=== PATIENT | female | born 1965 | race Caucasian/White ===

== ENCOUNTER 2017-09-15 11:35 | Emergency (ER) | payer OTHER, SELFPAY | END 2017-09-15 12:08 | disposition home or self-care (01) | PROVIDERS: Emergency Provider Nurse Practitioner Family; Family Provider Internal Medicine Adolescent Medicine; Visit Provider Nurse Practitioner Family | DX: J10.1 Influenza due to other identified influenza virus with other respiratory manifestations (principal) | CPT/HCPCS: 87804; 99201 ==

== ENCOUNTER → 2017-10-13 08:38 | Outpatient (CLI) | payer OTHER, SELFPAY ==
[2017-10-13 10:03] LABS: Alanine Aminotransferase 95 U/L (12-78); Albumin Level 4.2 gm/dL (3.4-5.0); Albumin/Globulin Ratio 1.4 (1.1-1.8); Alkaline Phosphatase 103 U/L (46-116); Aspartate Amino Transferase 58 U/L (15-37); Bilirubin,Total 0.4 mg/dL (0.2-1.0); Blood Urea Nitrogen 11 mg/dL (7-18); Calcium 8.8 mg/dL (8.5-10.1); Carbon Dioxide 27 mmol/L (21.0-32.0); Chloride 104 mmol/L (98-107); Chol/HDL Ratio 2.3 (1-3.5); Cholesterol 169 mg/dL (140-200); Creatinine,Serum 0.57 mg/dL (0.55-1.02); Estimated Glomerular Filt Rate 113 ml/min (>60); GFR (African American) 136 ML/MIN (>60); Globulin 3.1 gm/dl (1.3-3.2); Glucose 132 mg/dL (74-106); HDL Cholesterol 75 mg/dL (29-89); LDL Cholesterol 80 mg/dL (0-130); Sodium 141 mmol/L (136-145); Total Protein,Serum 7.3 gm/dL (6.4-8.2); Triglycerides 71 mg/dL (30-200); VLDL Cholesterol 14 mg/dL (0-40)
[2017-10-13 14:04] LABS: Hemoglobin A1C 6.6 % (0.0-7.0)
[2017-10-15 15:08] LABS: Hep A Ab, IgM Negative (Negative); Hepatitis B Core Antibody IgM Negative (Negative); Hepatitis B Surface Antigen Negative (Negative)
[2017-10-15 18:29] LABS: Hepatitis C Antibody <0.1 s/co ratio (0.0-0.9)
== END ==
PROVIDERS: PCP Internal Medicine Adolescent Medicine; Visit Provider Nurse Practitioner Family
DX: Z00.00 Encounter for general adult medical examination without abnormal findings (principal)
CPT/HCPCS: 36415; 80053; 80061; 80074; 83036

== ENCOUNTER → 2017-10-17 09:50 | Outpatient (CLI) | payer OTHER, SELFPAY ==
--- NOTE | 2017-10-17 09:54 | XR_ITS ---
EXAM: XR lumbar spine min 4V HISTORY: ITS.REASON: ACUTE BILAT LOW BACK PAIN ORDERING PHYSICIAN: Anahy High PATIENT AGE: 51 years COMPARISON: None FINDINGS: No acute fracture or dislocation is evident. There is mild anterolisthesis of L4 on L5 of 3 mm. Degenerative disc disease is present at L5-S1. There are facet hypertrophic/arthritic changes at L4-L5 and L5-S1. No lytic or blastic change. IMPRESSION: Lumbar spondylosis with degenerative disc disease at L5-S1 and facet arthritic changes at L4-L5 and L5-S1
--- NOTE | 2017-10-17 09:54 | XR_ITS ---
XR sacroiliac joint BI min 3V CLINICAL INDICATION: ITS.REASON: ACUTE BILAT LOW BACK PAIN ORDERING PHYSICIAN: Anahy High PATIENT AGE: 51 years COMPARISON: None FINDINGS: The SI joints have an unremarkable appearance. No fracture, effusion, or sclerosis. IMPRESSION: Negative SI joints
== END ==
PROVIDERS: PCP Internal Medicine Adolescent Medicine; Visit Provider Nurse Practitioner Family
DX: M54.5 Low back pain (principal)
CPT/HCPCS: 72110; 72202

== ENCOUNTER → 2017-10-20 07:45 | Outpatient (CLI) | payer OTHER, SELFPAY ==
--- NOTE | 2017-10-20 07:47 | US_ITS ---
US abdomen limited Ordering Physician: Anahy High Patient Age: 51 years: Female HISTORY: ITS.REASON: ELEVATED LIVER ENZYMES Elevated liver enzymes. TECHNIQUE: Ultrasound right upper quadrantmw COMPARISON :No FINDINGS ----- Pancreas. Unremarkable. Liver. Diffuse increased echogenicity suggesting diffuse infiltrates change No focal lesion. No intrahepatic biliary duct dilatation Common duct normal diameter no dilatation. 3 mm at hilum of liver Gallbladder.: No discrete shadowing stones However there is a 4.5 mm echogenic focus which appears to be a small polyp along the posterior wall. Borderline thickened gallbladder wall measuring 3.4 mm thickness . Right kidney appears normal. With no hydronephrosis or mass 10.4 cm in length x 5.3 cm. IMPRESSION: Fatty liver, diffusehepatic steatosis Gallbladder. No discrete shadowing stones. Minimal debris, sludge . What appears to be most likely left 4.5 mm polyp posterior wall gallbladder
== END ==
PROVIDERS: PCP Internal Medicine Adolescent Medicine; Visit Provider Nurse Practitioner Family
DX: R74.8 Abnormal levels of other serum enzymes (principal)
CPT/HCPCS: 76705

== ENCOUNTER → 2018-05-24 10:31 | Outpatient (CLI) | payer OTHER, SELFPAY ==
[2018-05-24 11:59] LABS: Alanine Aminotransferase 24 U/L (12-78); Albumin Level 3.7 gm/dL (3.4-5.0); Albumin/Globulin Ratio 1.1 (1.1-1.8); Alkaline Phosphatase 93 U/L (46-116); Anion Gap 11.5 mEq/L (5-15); Aspartate Amino Transferase 14 U/L (15-37); Bilirubin,Total 0.3 mg/dL (0.2-1.0); Blood Urea Nitrogen 7 mg/dL (7-18); Carbon Dioxide 29 mmol/L (21.0-32.0); Chloride 104 mmol/L (98-107); Chol/HDL Ratio 3.8 (1-3.5); Cholesterol 232 mg/dL (140-200); Creatinine,Serum 0.75 mg/dL (0.55-1.02); Estimated Glomerular Filt Rate 82 ml/min (>60); GFR (African American) 99 ML/MIN (>60); Globulin 3.3 gm/dl (1.3-3.2); Glucose 141 mg/dL (74-106); HDL Cholesterol 61 mg/dL (29-89); LDL Cholesterol 139 mg/dL (0-130); Potassium 4.5 mmoL/L (3.5-5.1); Sodium 140 mmol/L (136-145); Triglycerides 158 mg/dL (30-200); VLDL Cholesterol 32 mg/dL (0-40)
[2018-05-24 12:12] LABS: Hemoglobin A1C 6.2 % (0.0-7.0)
== END ==
PROVIDERS: PCP Internal Medicine Adolescent Medicine; Visit Provider Nurse Practitioner Family
DX: Z00.00 Encounter for general adult medical examination without abnormal findings (principal); E78.5 Hyperlipidemia, unspecified; E11.9 Type 2 diabetes mellitus without complications
CPT/HCPCS: 36415; 80053; 80061; 83036

== ENCOUNTER → 2018-06-04 08:13 | Outpatient (POV) | payer OTHER, SELFPAY | PROVIDERS: Visit Provider Physician Assistant | DX: Z00.00 Encounter for general adult medical examination without abnormal findings (principal) ==

== ENCOUNTER → 2018-11-16 07:49 | Outpatient (CLI) | payer OTHER, SELFPAY ==
[2018-11-16 10:03] LABS: Alanine Aminotransferase 69 U/L (12-78); Albumin Level 4.1 gm/dL (3.4-5.0); Albumin/Globulin Ratio 1.2 (1.1-1.8); Alkaline Phosphatase 96 U/L (46-116); Anion Gap 16.3 mEq/L (5-15); Aspartate Amino Transferase 36 U/L (15-37); Bilirubin,Total 0.5 mg/dL (0.2-1.0); Blood Urea Nitrogen 16 mg/dL (7-18); Calcium 9.4 mg/dL (8.5-10.1); Carbon Dioxide 25 mmol/L (21.0-32.0); Chloride 101 mmol/L (98-107); Chol/HDL Ratio 2.9 (1-3.5); Cholesterol 214 mg/dL (140-200); Estimated Glomerular Filt Rate 89 ml/min (>60); GFR (African American) 107 ML/MIN (>60); Globulin 3.3 gm/dl (1.3-3.2); Glucose 116 mg/dL (74-106); HDL Cholesterol 73 mg/dL (29-89); LDL Cholesterol 120 mg/dL (0-130); Potassium 4.3 mmoL/L (3.5-5.1); Sodium 138 mmol/L (136-145); Total Protein,Serum 7.4 gm/dL (6.4-8.2); Triglycerides 104 mg/dL (30-200); VLDL Cholesterol 21 mg/dL (0-40)
[2018-11-16 10:10] LABS: C-Reactive Protein < 0.2 mg/L (0.0-0.9)
[2018-11-16 12:21] LABS: Hemoglobin A1C 6.5 % (0.0-7.0)
[2018-11-16 15:36] LABS: Erythrocyte Sedimentation Rate 12 mm/hr (0-20)
[2018-11-19 16:45] LABS: Antinuclear Antibodies, IFA Negative (.)
== END ==
PROVIDERS: Visit Provider Nurse Practitioner Family
DX: Z00.00 Encounter for general adult medical examination without abnormal findings (principal); E78.5 Hyperlipidemia, unspecified; E11.9 Type 2 diabetes mellitus without complications; M12.9 Arthropathy, unspecified
CPT/HCPCS: 36415; 80053; 80061; 83036; 85651; 86038; 86140

== ENCOUNTER → 2018-11-21 07:58 | Outpatient (CLI) | payer OTHER, SELFPAY ==
--- NOTE | 2018-11-21 08:00 | US_ITS ---
US liver HISTORY: ITS.REASON: NONALCOHOLIC STEATOHEPATITIS ORDERING PHYSICIAN: Anahy High PATIENT AGE: 52 years COMPARISON: None FINDINGS: PANCREAS:Unremarkable. No obvious mass or abnormal fluid collection. No ductal dilatation LIVER:No focal liver lesions demonstrated. Homogeneous echogenicity. No intrahepatic biliary ductal dilatation evident there is mild diffuse increased echogenicity of the liver consistent with hepatic steatosis. There is appropriate direction of blood flow within a nondilated portal vein RIGHT KIDNEY:Unremarkable. Normal size and echogenicity. No hydronephrosis GALLBLADDER:No gallstones, gallbladder wall thickening, pericholecystic fluid, or biliary dilatation. There are at least 2 and possibly 3 small gallbladder polyps. Common bile duct is normal at 4 mm. IMPRESSION: Fatty liver. Gallbladder polyps. No stones or other significant anomalies
== END ==
PROVIDERS: PCP Nurse Practitioner Family; Visit Provider Nurse Practitioner Family
DX: K75.81 Nonalcoholic steatohepatitis (NASH) (principal)
CPT/HCPCS: 76705

== ENCOUNTER → 2018-11-29 12:22 | Outpatient (CLI) | payer OTHER, SELFPAY ==
--- NOTE | 2018-11-29 12:30 | XR_ITS ---
XR hand RT min 3V HISTORY: ITS.REASON: RT THUMB PAIN ORDERING PHYSICIAN: Anahy High PATIENT AGE: 52 years COMPARISON: None FINDINGS: No fracture or dislocation. No lytic or blastic change. There is normal mineralization.. The joint spaces are well-preserved. No significant degenerative/arthritic changes. No erosive changes evident.. IMPRESSION: Negative, no acute finding
== END ==
PROVIDERS: PCP Internal Medicine Adolescent Medicine; Visit Provider Nurse Practitioner Family
DX: M79.644 Pain in right finger(s) (principal)
CPT/HCPCS: 73130

== ENCOUNTER 2018-12-26 15:13 | Outpatient (RCR) | payer OTHER, SELFPAY | END 2018-12-26 15:30 | disposition home or self-care (01) | LOC: OT 15:13 | PROVIDERS: Visit Provider Orthopaedic Surgery | DX: M65.311 Trigger thumb, right thumb (principal) | CPT/HCPCS: 97763 ==

== ENCOUNTER → 2019-06-12 14:15 | Outpatient (CLI) | payer OTHER, SELFPAY ==
--- NOTE | 2019-06-12 14:18 | XR_ITS ---
PROCEDURE: XR MULTIPLE SPINE 6+V CLINICAL INDICATION: CERVICAL AND THORACIC PAIN COMPARISON: No exams were available for comparison FINDINGS: Cervical spine: Five views: Straightening of cervical lordosis. Degenerative disc disease C5-C6 and C6-C7. facet arthritic changes see 4 to C7. Mild foraminal narrowing on the right C4-5 and C5-6 and C6-C7 and mild left-sided foraminal narrowing at C5-C6 and C6-C7. No fracture or dislocation. Thoracic spine three views: Mild midthoracic scoliosis convex right. Mild multilevel degenerative disc disease. No acute fracture or dislocation. IMPRESSION: Degenerative changes, cervical and thoracic spondylosis. Please see above for detail. No acute fracture Dictated by: Mac Murry MD 06/13/2019 05:10 Electronically signed by Mac Murry MD in [place] 06/13/2019 05:10
== END ==
PROVIDERS: PCP Internal Medicine Adolescent Medicine; Visit Provider Nurse Practitioner Family
DX: M54.2 Cervicalgia (principal); M54.6 Pain in thoracic spine
CPT/HCPCS: 72084

== ENCOUNTER → 2019-07-01 14:59 | Outpatient (CLI) | payer OTHER, SELFPAY ==
--- NOTE | 2019-07-01 15:01 | MR_ITS ---
PROCEDURE: MR CERVICAL SPINE WO CON CLINICAL INDICATION: CERVICAL PAIN Left-sided neck pain. Left arm numbness COMPARISON: XR MULTIPLE SPINE 6+V from 06/12/2019 TECHNIQUE: Standard multiplanar multiecho sequences are performed without contrast. 3-D MIP and myelographic images are also rendered and reviewed FINDINGS: There is straightening/reversal of the normal lordosis which may be due to patient positioning or muscle spasm. Cranial cervical junction has an unremarkable appearance. There is generalized motion artifact which does decrease the sensitivity of the exam. C2-C3: Unremarkable. C3-C4: Unremarkable. C4-C5: Unremarkable. C5-C6: Degenerative disc disease. There is a small central disc protrusion. There narrowing of the canal at this level at 9 mm. There also appears to be a small left paracentral/foraminal disc protrusion/disc osteophyte complex causing left lateral recess and foraminal narrowing. Motion artifact does obscure fine detail in this area. C6-C7: Degenerate disc disease with mild bulging disc. Type 2 endplate changes are present at C6-C7 C7-T1 unremarkable. On the sagittal images there degenerative disc disease noted at T2-T3 and T3-T4 with bulging disc at these levels.. IMPRESSION: 1. Motion artifact obscures fine detail. 2. Degenerative disc disease at C5-C6 with a small central disc protrusion. There narrowing of the canal at this level at 9 mm. There also appears to be a small left paracentral/foraminal disc protrusion/disc osteophyte complex causing left lateral recess and foraminal narrowing 3. Degenerative disc disease C6-C7, T2-T3 and T3-T4 with bulging disc at these levels Dictated by: Mac Murry MD 07/02/2019 05:07 Electronically signed by Mac Murry MD in [place] 07/02/2019 05:07
== END ==
PROVIDERS: PCP Internal Medicine Adolescent Medicine; Visit Provider Nurse Practitioner Family
DX: M54.2 Cervicalgia (principal)
CPT/HCPCS: 72141; 76376

== ENCOUNTER → 2019-08-05 08:40 | Outpatient (POV) | payer OTHER, SELFPAY ==
[2019-08-05 08:57] VITALS: BP 144/69; PULSE 77; RESP 18; O2SAT 99; BMI 27.3
--- NOTE | 2019-08-05 14:58 | HMH.PAINSOAP ---
[facility] Pain Management SOAP Note Subjective:: Patient is a very pleasant 53-year-old white female who presents today for follow-up after cervical epidural steroid injection. Patient did not get much relief from that she rates her pain a 3 out of 10 today. Patient does have a appointment Dr. Franz the neurosurgeon tomorrow. I encouraged her to keep this appointment. At this time we will defer to him until he gives recommendations in regards to her treatment. ROS General: no recent weight change, no fever, no sleep disturbances Respiratory: no cough, no shortness of air, no recurring pulmonary infections Cardiovascular/Peripheral Vascular: No chest pain, No palpitations, no edema, no shortness of breath. Gastrointestinal: no new onset incontinence, normal bowel movements reported Genitourinary: no new onset incontinence Musculoskeletal: Neck pain, arm pain Psychiatric: normal mood/ affect Neurological: [denies new onset weakness in extremities], [denies new onset balance issues] Objective:: Physical Exam General: Alert and oriented x3, no acute distress, pleasant and cooperative, [on room air] Lungs: Resps E/U, Symmetrical chest expansion, Eyes: PERRL Musculoskeletal: Flexion and extension of cervical spine somewhat guarded secondary to pain, deep tendon reflexes normal, strength in upper and lower extremities [5/5], normal gait noted Neurological: speech clear, staffing account manager equal, no gross sensory deficits Assessment:: 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 Franz tomorrow. We will defer to him for his opinion in regards to treatment. Patient's been instructed to call the office after her appointment for follow-up if necessary. T Dr. Gil has reviewed this note and agrees with this plan of care. This note was dictated using voice recognition software and may contain errors or omissions [facility] History Medical History: Reports:: Depression, Diabetes Mellitus Type 2 Denies:: Asthma, Cancer, Diabetes Mellitus Type 1, Hypertension, MRSA, Seizures *Have you ever received a pneumonia vaccine?: Yes *Have you received a flu vaccine this season?: Yes Other Surgeries: Yes: Skin Cancer Excision, Tubal Ligation Amputation: No Fractures: No - *Social History Smoking Status: Never smoker Alcohol Intake: never Alcohol Intake Frequency:: holidays/special occasions only Substance Use Type: denies use *Occupational Status:: other Housing: apartment Household Members: spouse *Travel in the last 8 weeks: None - Psychiatric History Pschychiatric History:: Reports:: Depression Family Hx:: Cancer, Diabetes, Hyperlipidemia
== END ==
PROVIDERS: PCP Internal Medicine Adolescent Medicine; Visit Provider Clinical Nurse Specialist Family Health
DX: M50.10 Cervical disc disorder with radiculopathy, unspecified cervical region (principal)
CPT/HCPCS: 99212

== ENCOUNTER → 2019-09-05 13:53 | Outpatient (POV) | payer OTHER, SELFPAY | PROVIDERS: Visit Provider Neurological Surgery | DX: Z00.00 Encounter for general adult medical examination without abnormal findings (principal) ==

== ENCOUNTER → 2019-10-10 09:43 | Outpatient (CLI) | payer OTHER, SELFPAY ==
--- NOTE | 2019-10-10 09:46 | XR_ITS ---
PROCEDURE: XR HAND RT MIN 3V CLINICAL INDICATION: hand pain COMPARISON: [id number] XR hand RT min 3V from 11/29/2018 FINDINGS: No fracture or dislocation. No lytic or blastic change. There is normal mineralization. The joint spaces are well-preserved. No significant degenerative/arthritic changes. No erosive changes evident. Other findings:None. IMPRESSION: No acute findings. Dictated by: Cristóbal Wilson 10/10/2019 10:20 Electronically signed by Cristóbal Wilson in [place] 10/10/2019 10:20
== END ==
PROVIDERS: PCP Internal Medicine Adolescent Medicine; Visit Provider Orthopaedic Surgery
DX: M65.311 Trigger thumb, right thumb (principal)
CPT/HCPCS: 73130

== ENCOUNTER → 2020-03-10 16:53 | Outpatient (CLI) | payer OTHER, SELFPAY ==
--- NOTE | 2020-03-10 16:53 | MM_ITS ---
PROCEDURE: MM DIG SCREENING MAMM BI W/CAD Digital Breast Tomosynthesis Included CLINICAL INDICATION: screening xmg Cancer patient's maternal great aunt diagnosed after menopause. COMPARISON: DMSB DIG MAMM-SCREEN SOHAIL from 08/20/2015 DMSB DIG MAMM-SCREEN SOHAIL from 08/24/2016 DMSB DIG MAMM-SCREEN SOHAIL W/CAD from 08/29/2017 TECHNIQUE: Standard CC and MLO images and 3D Tomosynthesis was obtained. R2 CAD reviewed. FINDINGS: Scattered fibroglandular densities are seen throughout both breast and the findings of bilateral and symmetrical. There is no suspicious lesion and no suspicious microcalcifications. IMPRESSION: Fibrofatty parenchyma with no suspicious lesions seen BI-RAD Category: 1 Negative FOLLOW-UP: 1YR 1 Year Follow-up (A letter has been sent to the patient regarding results of the study.) Dictated by: Dr. Derek Warren MD 03/13/2020 10:[address] Derek Warren MD in [place] 03/13/2020 10:36
== END ==
PROVIDERS: PCP Internal Medicine Adolescent Medicine; Visit Provider Nurse Practitioner Obstetrics & Gynecology
DX: Z12.31 Encounter for screening mammogram for malignant neoplasm of breast (principal)
CPT/HCPCS: 77063; 77067

== ENCOUNTER → 2020-03-17 12:39 | Outpatient (CLI) | payer OTHER, SELFPAY ==
--- NOTE | 2020-03-17 13:15 | XR_ITS ---
PROCEDURE: XR HAND RT MIN 3V CLINICAL INDICATION: PAIN IN RT FINGERS COMPARISON: [id number] XR hand RT min 3V from 11/29/2018 XR HAND RT MIN 3V from 10/10/2019 FINDINGS: No fracture or dislocation. No lytic or blastic change. There is normal mineralization. The joint spaces are well-preserved. No significant degenerative/arthritic changes. No erosive changes evident. Other findings:None. IMPRESSION: No acute findings. Dictated by: Mac Murry MD 03/17/2020 14:52 Electronically signed by Mac Murry MD in [place] 03/17/2020 14:52
== END ==
PROVIDERS: PCP Nurse Practitioner Family; Visit Provider Nurse Practitioner Family
DX: M79.644 Pain in right finger(s) (principal); G89.29 Other chronic pain; L40.9 Psoriasis, unspecified
CPT/HCPCS: 73130

== ENCOUNTER → 2020-04-03 07:56 | Outpatient (CLI) | payer OTHER, SELFPAY ==
[2020-04-03 09:27] LABS: Basophils % 0.4 % (0.1-2.0); Eosinophils # 0.3 K/mm3 (0.0-0.4); Eosinophils % 3.8 % (0.1-12.0); Hemoglobin 13.8 g/dL (12.2-16.2); Mean Corpuscular HGB Conc 32.9 g/dL (31.8-35.4); Mean Corpuscular Hemoglobin 31.5 pg (27.0-31.2); Mean Corpuscular Volume 95.7 fl (81-99); Mean Platelet Volume 7.6 fl (7.4-10.4); Monocytes # 0.3 K/mm3 (0.1-1.0); Monocytes % 4.7 % (1.7-9.3); Neutrophils # 4.5 K/mm3 (1.8-7.8); Neutrophils % 63.1 % (37.0-80.0); Platelet Count 244 K/mm3 (142-424); Red Blood Count 4.39 M/mm3 (4.20-5.40); Red Cell Distribution Width 13.4 % (11.5-17.5); White Blood Count 7.1 K/mm3 (4.8-10.8)
[2020-04-03 09:55] LABS: Erythrocyte Sedimentation Rate 17 mm/hr (0-30)
[2020-04-03 10:16] LABS: Alanine Aminotransferase 34 U/L (12-78); Albumin Level 4.8 g/dl (3.5-5.0); Albumin/Globulin Ratio 1.7 (1.1-1.8); Alkaline Phosphatase 94 U/L (38-126); Anion Gap 13.3 mEq/L (5-15); Aspartate Amino Transferase 37 U/L (14-36); Bilirubin,Total 0.5 mg/dl (0.2-1.3); Blood Urea Nitrogen 18 mg/dl (7-17); Calcium 10.1 mg/dl (8.4-10.2); Carbon Dioxide 31 mmol/L (22.0-30.0); Chloride 100 mmol/L (98-107); Chol/HDL Ratio 2.2 (1-3.5); Cholesterol 194 mg/dl (140-200); Estimated Glomerular Filt Rate 75 ml/min (>60); GFR (African American) 91 ML/MIN (>60); Globulin 2.8 g/dL (1.3-3.2); Glucose 158 mg/dl (74-100); HDL Cholesterol 90 mg/dl (40-60); Potassium 4.3 mmoL/L (3.5-5.1); Sodium 140 mmol/L (136-145); Total Protein,Serum 7.6 g/dl (6.3-8.2); Triglycerides 121 mg/dl (30-150); VLDL Cholesterol 24 mg/dL (0-40)
[2020-04-03 10:27] LABS: C-Reactive Protein 1.3 mg/L (0-4); Direct LDL Cholesterol 84.96 mg/dL (100-129)
[2020-04-03 11:22] LABS: Microalbumin/Creatinine Ratio 172.8
[2020-04-03 11:23] LABS: Creatinine,Urine Random 69 mg/dL (Not Estab.)
== END ==
PROVIDERS: Visit Provider Nurse Practitioner Family
DX: E11.9 Type 2 diabetes mellitus without complications (principal); E78.5 Hyperlipidemia, unspecified; M79.644 Pain in right finger(s); L40.9 Psoriasis, unspecified; Z79.84 Long term (current) use of oral hypoglycemic drugs
CPT/HCPCS: 36415; 80053; 80061; 82043; 82570; 83036; 85025; 85651; 86140

== ENCOUNTER → 2020-04-21 07:56 | Outpatient (POV) | payer OTHER, SELFPAY | PROVIDERS: Visit Provider Dermatology | DX: Z00.00 Encounter for general adult medical examination without abnormal findings (principal) ==

== ENCOUNTER → 2020-06-22 13:13 | Outpatient (CLI) | payer OTHER, SELFPAY ==
--- NOTE | 2020-06-22 13:17 | XR_ITS ---
PROCEDURE: XR KNEE RT 3V CLINICAL INDICATION: RT KNEE PAIN,RT KNEE SWELLING COMPARISON: No exams were available for comparison FINDINGS: No fracture or dislocation. No lytic or blastic change. There is normal mineralization. There are minimal osteoarthritic changes of the medial compartment and patellofemoral joint Other findings:None. IMPRESSION: Mild osteoarthritis otherwise negative Dictated by: Mac Murry MD 06/22/2020 14:33 Mac Murry MD in [place] 06/22/2020 14:33
[2020-06-22 14:00] LABS: Basophils % 0.4 % (0.1-2.0); Eosinophils # 0.2 K/mm3 (0.0-0.4); Eosinophils % 2.1 % (0.1-12.0); Hematocrit 42.3 % (37.0-47.0); Hemoglobin 14.5 g/dL (12.2-16.2); Lymphocytes % 24.9 % (10-50); Mean Corpuscular HGB Conc 34.4 g/dL (31.8-35.4); Mean Corpuscular Volume 93.2 fl (81-99); Mean Platelet Volume 7.9 fl (7.4-10.4); Monocytes # 0.5 K/mm3 (0.1-1.0); Monocytes % 6.2 % (1.7-9.3); Neutrophils # 5.4 K/mm3 (1.8-7.8); Neutrophils % 66.3 % (37.0-80.0); Platelet Count 259 K/mm3 (142-424); Red Blood Count 4.54 M/mm3 (4.20-5.40); Red Cell Distribution Width 12.5 % (11.5-17.5); White Blood Count 8.1 K/mm3 (4.8-10.8)
== END ==
PROVIDERS: PCP Internal Medicine Adolescent Medicine; Visit Provider Nurse Practitioner Family
DX: M25.561 Pain in right knee (principal); M25.461 Effusion, right knee
CPT/HCPCS: 36415; 73562; 84550; 85025

== ENCOUNTER → 2020-06-23 07:45 | Outpatient (CLI) | payer OTHER, SELFPAY ==
--- NOTE | 2020-06-23 07:48 | MR_ITS ---
PROCEDURE: MR KNEE RT WO CON CLINICAL INDICATION: RIGHT MEDIAL KNEE PAIN, SWELLING RIGHT KNEE MEDIAL SIDED KNEE PAIN [id number]. PAINFUL TO BEAR WEIGHT. NO INJURY. PAIN WHEN BENDING AND EXTENDING KNEE. WORSE WHEN BENDING. PRIOR X-RAY 06-22-20 COMPARISON: CR XR KNEE RT 3V from 06/22/2020 TECHNIQUE: Routine multiplanar multi echo sequences are performed without gadolinium enhancement. FINDINGS: Commence appear intact. The collateral ligaments, patellar tendon, and quadriceps tendon appear intact. No definite meniscal tear there is a lobular area of isointense signal along the medial aspect the proximal tibia. This is contiguous with the semimembranosus tendon.. The medial collateral ligament and lateral collateral ligament appears intact. There is a moderate-sized loculated Quick's cyst measuring 7 cm cephalad caudad and 2.5 cm AP. Generalized knee joint effusion also noted with suprapatellar effusion. No definite meniscal tear. There is mild enlargement of the medial meniscus posterior horn with slight increase in T2 signal but no definite meniscal tear. This is at the area of the enlarged portion of the semimembranosus tendon. No bone contusions apparent. IMPRESSION: 1. No definite meniscal tear. No cruciate ligament tear. 2. Enlarged semimembranosus tendon at its insertion upon the proximal tibia with some increased T2 signal at this area suggesting strain or partial tear. A complete tear with tendon retraction is not present. 3. Knee joint effusion with Quick's cyst. Dictated by: Mac Murry MD 06/25/2020 10:22 Mac Murry MD in [place] 06/25/2020 10:22
== END ==
PROVIDERS: PCP Internal Medicine Adolescent Medicine; Visit Provider Nurse Practitioner Family
DX: M25.561 Pain in right knee (principal); M25.461 Effusion, right knee; M25.361 Other instability, right knee
CPT/HCPCS: 73721

== ENCOUNTER → 2020-08-31 09:30 | Outpatient (CLI) | payer SELFPAY | DX: Z94.0 Kidney transplant status (principal) | CPT/HCPCS: 36415 ==

== ENCOUNTER → 2020-10-12 11:37 | Outpatient (CLI) | payer OTHER, SELFPAY ==
--- NOTE | 2020-10-12 11:42 | XR_ITS ---
PROCEDURE: XR KNEE RT 4V CLINICAL INDICATION: right knee pain COMPARISON: CR XR KNEE RT 3V from 06/22/2020 FINDINGS: No fracture or dislocation. No lytic or blastic change. There is normal mineralization. Minimal osteoarthritic changes are present at the medial compartment. There is suspected small suprapatellar effusion. There is minimal lateral tibial subluxation. Other findings:None. IMPRESSION: Mild osteoarthritic change medial compartment with possible small knee joint effusion overall not significantly changed Dictated by: Mac Murry MD 10/12/2020 12:26 Mac Murry MD in [place] 10/12/2020 12:26
== END ==
PROVIDERS: PCP Internal Medicine Adolescent Medicine; Visit Provider Orthopaedic Surgery
DX: M25.561 Pain in right knee (principal)
CPT/HCPCS: 73564

== ENCOUNTER → 2020-10-21 08:05 | Outpatient (CLI) | payer OTHER, SELFPAY ==
--- NOTE | 2020-10-21 08:12 | XR_ITS ---
PROCEDURE: XR HIP RT 2-3V W/PELVIS CLINICAL INDICATION: right hip pain COMPARISON: No exams were available for comparison FINDINGS: No fracture or dislocation is evident. No significant degenerative change. No lytic or blastic change. Unremarkable soft tissues. IMPRESSION: No acute findings. Dictated by: Mac Murry MD 10/21/2020 15:57 Mac Murry MD in [place] 10/21/2020 15:57
== END ==
PROVIDERS: PCP Internal Medicine Adolescent Medicine; Visit Provider Orthopaedic Surgery
DX: M25.551 Pain in right hip (principal)
CPT/HCPCS: 73502

== ENCOUNTER → 2021-01-29 12:48 | Outpatient (CLI) | payer OTHER, SELFPAY | PROVIDERS: Visit Provider Internal Medicine Gastroenterology | DX: Z01.812 Encounter for preprocedural laboratory examination (principal); Z20.822 Contact with and (suspected) exposure to COVID-19; Z12.11 Encounter for screening for malignant neoplasm of colon | CPT/HCPCS: U0003 ==

== ENCOUNTER 2021-02-01 08:50 | Day surgery (SDC) | payer OTHER, SELFPAY ==
[2021-01-27 12:57] VITALS: BMI 26.4
[2021-02-01] VITALS (7 sets, daily range): BP systolic 97–122; BP diastolic 68–79; PULSE 71–79; RESP 18; TEMP 36.3–36.4; O2SAT 93–98
[2021-02-01 09:21] LABS: POC Glucose,Bedside 119 (70-110)
--- NOTE | 2021-02-01 10:04 | HMH.ANESCL ---
[facility] Anesthesia Checklist - Patient Identification Patient Identification: Arm Band - Structural Data Admitted From: Home Planned Operative Procedure/s: colonoscopy Consent for Planned Operative Procedure(s) Verified: Yes Verified Documents: Surgical Consent, History and Physical - NPO Status Verified Time NPO: 00:00 - Additional verifications Anesthesia Reactions: No - Airway Assessment C-Spine Mobility Assessed: Yes (mp2) TMJ Mobility Assessed: Yes Dentition: Good Dentition - Neurological Assessment Level of Consciousness: Awake, Alert - Anesthesia Plan Anesthesia Risk discussed: Yes Anesthesia Plan: Verified ASA Class: II Anesthesia Type: MAC [facility] History I have reviewed the patient's past medical history: Yes Medical History: Reports:: Cancer (melanoma), Depression, Diabetes Mellitus Type 2 Denies:: Asthma, Diabetes Mellitus Type 1, Hypertension, Internal Pacemaker, MRSA, Seizures *Have you ever received a pneumonia vaccine?: Yes *Have you received a flu vaccine this season?: Yes Anesthesia experience/problems:: nac Other Surgeries: Yes: Skin Cancer Excision, Tubal Ligation. No: Pacemaker Amputation: No Fractures: No - *Social History Last grade of school completed: High school graduate Smoking Status: Never smoker Alcohol Intake: current Alcohol Intake Frequency:: holidays/special occasions only Substance Use Type: denies use *Occupational Status:: employed Housing: house Household Members: spouse *Travel in the last 8 weeks: None - Psychiatric History Pschychiatric History:: Reports:: Depression Family Hx:: Cancer, Diabetes
--- NOTE | 2021-02-01 10:30 | P.PCN_ITS ---
[facility] Procedure Note Procedure Note:: Colonoscopy Procedure Report: Colonoscopy with cold snare polypectomy Endoscopist: Matthieu Degroot II, MD Referring physician: Anahy BAIRES Date of Procedure: February 01, 2021 Equipment: Olympus 190 variable stiffness pediatric colonoscope Sedation: MAC sedation Indication: Mrs. Corado is a 55-year-old female who is here for initial screening colonoscopy. She reports no abdominal pain, weight loss, change in her bowel habits or rectal bleeding. She reports no family history of colon cancer. She does have several bowel movements daily. Procedure: Prior to the procedure, a history and physical exam was performed, and patient's medications and allergies were reviewed. The risks, benefits and alternatives of the sedation and procedure were discussed with the patient. All questions were answered and informed consent was obtained. The patient was brought to the procedure room. Patient identification and proposed procedure were verified by the physician and the nurse. The patient was placed in a left lateral decubitus position and the scope was passed under direct vision. Throughout the procedure, the patient's blood pressure, pulse, and oxygen saturations were monitored continuously. The colonoscopy was accomplished without difficulty. The patient tolerated the procedure well. Findings: On digital rectal examination there was normal rectal tone. There were no external hemorrhoids. The colonoscope was introduced through the anal canal to the rectum and advanced to the cecum. The ileocecal valve and appendiceal orifice were identified. The scope was advanced a short distance into the ileum which appeared grossly normal. The scope was then withdrawn into the colon. There were 5 colon polyps (ascending x2 (3 and 4 mm), transverse x1 (7 mm), rectosigmoid x1 (6 mm) and rectum x1 (3 mm)) which were all removed via cold snare polypectomy. The remaining cecum, ascending, transverse, descending, sigmoid and rectum were grossly normal. There were no other mucosal abnormalities identified. Upon retroflexion within the rectum there were grade 1-2 internal hemorrhoids.The preparation was excellent throughout with Edmond Preparation Score of 9. The cecal time was 13 minutes. Impression: 1. Colonic polyps x5 2. Grade 1-2 internal hemorrhoids Plan: I will follow up the polyp pathology and recommend repeat colonoscopy again in 3-5 years based upon the polyp histology. I would encourage bulking fiber supplementation on a long-term daily maintenance basis.
== END 2021-02-01 11:18 | disposition home or self-care (01) ==
LOC: OUTP 08:51
PROVIDERS: PCP Internal Medicine Adolescent Medicine; Visit Provider Internal Medicine Gastroenterology
PROC: 0DJD8ZZ Inspection of Lower Intestinal Tract, Via Natural or Artificial Opening Endoscopic (ICD-10-PCS; CPT 45378; principal; 2021-02-01 10:00)
DX: Z12.11 Encounter for screening for malignant neoplasm of colon (principal); K63.5 Polyp of colon; K64.0 First degree hemorrhoids; K62.1 Rectal polyp; Z85.820 Personal history of malignant melanoma of skin; E11.9 Type 2 diabetes mellitus without complications; F32.9 Major depressive disorder, single episode, unspecified; Z80.9 Family history of malignant neoplasm, unspecified; Z83.3 Family history of diabetes mellitus
CPT/HCPCS: 45385; 82962

== ENCOUNTER 2021-02-03 09:00 | Emergency (ER) | payer OTHER, SELFPAY ==
[2021-02-03 09:05] VITALS: BP 123/87; PULSE 73; RESP 19; TEMP 37.3; O2SAT 96; BMI 26.4
--- NOTE | 2021-02-03 09:24 | HMH.EDUTC ---
[facility] [place] Impression: Tension type headache Qualifiers: Headache chronicity pattern: unspecified pattern Intractability: not intractable Qualified Code(s): G44.209 - Tension-type headache, unspecified, not intractable Disposition: Home, Self-Care Condition on Discharge: Good Instructions: Tension Headache (Alternative Therapy), Tension Headache, Methocarbamol, DI for Muscle Spasm Additional Instructions: *Take your Duexis as prescribed with meal as needed for pain/inflammation *Remember you had a Toradol shot in the clinic today, which is similar to Motrin and Duexis so do not start until at least 8-10 hours from now *Not additional anti-inflammatory like motrin, aleve, advil with the above amount of Duexis. You can still take Tylenol every 4 hours as needed if you need something else for pain *Ice 20 minutes every 2 hours for the first 48 hours after the initial injury followed by moist heat every 20 minutes 3-4 times a day to affected area *Muscle relaxer as prescribed as needed for muscle spasms but remember, it WILL cause drowsiness You cannot take it and drive, operate machinery or care for small children. *Keep this area active, no movement leads to more stiffness, However take it easy and avoid heavy lifting pushing or pulling *Follow up with you family doctor if no improvement for further treatment Return if needed Straight to ER if any life threatening symptoms You had a Solu Medrol injection in the [facility] this may increase your blood sugar if you do finger sticks at home but should return to normal in the next couple of days Prescriptions: methocarbamoL [Methocarbamol] 750 mg PO BID PRN #10 tab PRN Reason: Muscle Spasm Transmission Status: Received by [facility] Referrals: Nico Noyola MD [Primary Care Provider] - As needed Time of Disposition: 09:57 Medical Decision Making - [place] Inquiry Pt receiving controlled substance: No [place] was queried for this patient: No Vital Signs: 02/03/21 09:05 02/03/21 09:41 Temperature 99.1 F 99.1 F Temperature Source Oral Pulse Rate 73 Pulse Rate [Right Brachial] 73 Respiratory Rate 19 19 Blood Pressure 123/87 Blood Pressure [Right Arm] 123/87 Blood Pressure Mean [Right Arm] 99 Blood Pressure Source [Right Arm] Automatic Cuff Blood Pressure Position [Right Arm] Sitting 02 Sat by Pulse Oximetry 96 Oxygen Delivery Method Room Air Orders (Tests/Meds): ED MEDICATIONS Discontinued Medications Generic Name Dose Route Start Last Admin Trade Name Jodie PRN Reason Stop Dose Admin Ketorolac Tromethamine 60 mg 02/03/21 09:34 02/03/21 09:40 Ketorolac 60mg/2ml Vial IM 02/03/21 09:35 60 mg ONCE ONE Administration Methylprednisolone Sodium Succinate 125 mg 02/03/21 09:34 02/03/21 09:40 Methylprednisolone Sod Succ 125mg Vial IM 02/03/21 09:35 125 mg ONCE ONE Administration Medical Decision Narrative: Patient prescribed Duexis and gabapentin however states that she has not taken that in over a week Discussed Medications with pharmacy Patient reports history of muscle spasms in neck and tension type headaches Patient educated to take Duexis as prescribed as this may help with headache and will prescribe some Methocarbamol for muscle spasms and have patient follow up with PCP if no improvement or return of headache Patient states that migraine is much better after injections patient dc'd [place] [facility] [place] - General Stated complaint: headache,neck pain Time Seen by Provider: 02/03/21 09:24 Mode of Arrival: Ambulatory Source of Information: Patient Limitations: No Limitations Description of Symptoms (Recalled from Triage Doc. by RN): PATIENT C/O HEADACHE AND NECK PAIN X 3 DAYS. STATES PAIN STARTED AFTER HER COLONOSCOPY HEENT Symptoms (Recalled from RN notes): Yes Resp Symptoms (Recalled from RN notes): No Skin Symptoms (Recalled from RN notes): No MS Symptoms (Recalled from RN notes): No Functional Status (Recalled from
[2021-02-03 09:41] VITALS: BP 123/87; PULSE 73; RESP 19; TEMP 37.3; O2SAT 96
== END 2021-02-03 09:58 | disposition home or self-care (01) ==
PROVIDERS: Emergency Provider Nurse Practitioner; PCP Internal Medicine Adolescent Medicine
DX: G44.209 Tension-type headache, unspecified, not intractable (principal); M62.838 Other muscle spasm; E11.9 Type 2 diabetes mellitus without complications; F33.1 Major depressive disorder, recurrent, moderate; Z79.899 Other long term (current) drug therapy
CPT/HCPCS: 96372; 99202; G0463

== ENCOUNTER 2021-10-10 13:17 | Emergency (ER) | payer OTHER, SELFPAY ==
[2021-10-10 13:43] VITALS: BP 0/0; PULSE 0; RESP 0; TEMP -17.7; TEMP 0
== END 2021-10-10 13:43 | disposition left against medical advice (07) ==
LOC: UTC 13:19
PROVIDERS: Emergency Provider Nurse Practitioner; PCP Internal Medicine Adolescent Medicine
DX: U07.1 COVID-19 (principal)
CPT/HCPCS: C9803; U0003; U0005

== ENCOUNTER → 2021-12-22 16:51 | Outpatient (CLI) | payer OTHER, SELFPAY ==
--- NOTE | 2021-12-22 16:52 | MM_ITS ---
PROCEDURE INFORMATION: Exam: MG Bilateral Screening 3D Mammography Exam date and time: 12/22/2021 4:47 PM Age: 55 years old Clinical indication: Screening examination TECHNIQUE: Imaging protocol: Bilateral Screening tomosynthesis and 2D mammography including computer-aided detection (CAD) when performed. COMPARISON: 1. MG MM DIG SCREENING MAMM BI W/CAD 03/10/2020 4:58 PM 2. MG DMSB DIG MAMM-SCREEN SOHAIL W/CAD 08/29/2017 4:33 PM FINDINGS: MAMMOGRAPHY: Breast composition: The breast tissue is composed of scattered areas of fibroglandular density. Mass: None. Architectural distortion: None. Calcifications: No suspicious calcifications. Asymmetric density: None. Skin thickening: None. Axillary adenopathy: None. IMPRESSION: No mammographic evidence of malignancy. Annual screening is recommended unless otherwise clinically indicated. ASSESSMENT: BI-RADS Category 1: Negative
== END ==
PROVIDERS: PCP Internal Medicine Adolescent Medicine; Visit Provider Nurse Practitioner Obstetrics & Gynecology
DX: Z12.31 Encounter for screening mammogram for malignant neoplasm of breast (principal)
CPT/HCPCS: 77063; 77067

== ENCOUNTER → 2021-12-28 08:21 | Outpatient (CLI) | payer OTHER, SELFPAY ==
[2021-12-28 09:34] LABS: Hemoglobin A1C 7.5 % (4.0-6.0)
[2021-12-28 09:35] LABS: Creatinine,Urine Random 35 mg/dL (Not Estab.)
== END ==
PROVIDERS: Visit Provider Nurse Practitioner Family
DX: E11.9 Type 2 diabetes mellitus without complications (principal); Z79.84 Long term (current) use of oral hypoglycemic drugs
CPT/HCPCS: 36415; 82043; 82570; 83036

== ENCOUNTER → 2022-04-29 08:35 | Outpatient (CLI) | payer OTHER, SELFPAY ==
[2022-04-29 09:40] LABS: Alanine Aminotransferase 33 U/L (12-78); Albumin Level 4.2 g/dl (3.5-5.0); Albumin/Globulin Ratio 1.8 (1.1-1.8); Alkaline Phosphatase 96 U/L (38-126); Anion Gap 8.9 mEq/L (5-15); Aspartate Amino Transferase 34 U/L (14-36); Bilirubin,Total 0.2 mg/dl (0.2-1.3); Blood Urea Nitrogen 12 mg/dl (7-17); Calcium 9.8 mg/dl (8.4-10.2); Carbon Dioxide 29 mmol/L (22.0-30.0); Chloride 104 mmol/L (98-107); Chol/HDL Ratio 2.3 (1-3.5); Cholesterol 150 mg/dl (140-200); Estimated Glomerular Filt Rate 58 ml/min (>60); GFR (African American) 70 ML/MIN (>60); Globulin 2.4 g/dL (1.3-3.2); Glucose 170 mg/dl (74-100); HDL Cholesterol 66 mg/dl (40-60); Potassium 3.9 mmoL/L (3.5-5.1); Sodium 138 mmol/L (136-145); Total Protein,Serum 6.6 g/dl (6.3-8.2); Triglycerides 91 mg/dl (30-150); VLDL Cholesterol 18 mg/dL (0-40)
[2022-04-29 10:17] LABS: Hemoglobin A1C 7.2 % (4.0-6.0)
[2022-04-30 10:22] LABS: Direct LDL Cholesterol 56 mg/dL (100-129)
== END ==
PROVIDERS: PCP Internal Medicine Adolescent Medicine; Visit Provider Nurse Practitioner Family
DX: Z00.00 Encounter for general adult medical examination without abnormal findings (principal); E11.9 Type 2 diabetes mellitus without complications; E78.5 Hyperlipidemia, unspecified; Z79.84 Long term (current) use of oral hypoglycemic drugs
CPT/HCPCS: 80053; 80061; 83036

== ENCOUNTER → 2022-05-24 15:58 | Outpatient (CLI) | payer OTHER, SELFPAY | PROVIDERS: PCP Nurse Practitioner Family; Visit Provider Nurse Practitioner Family | DX: Z20.822 Contact with and (suspected) exposure to COVID-19 (principal) ==

== ENCOUNTER → 2022-10-20 11:56 | Outpatient (CLI) | payer OTHER, SELFPAY ==
--- NOTE | 2022-10-20 11:59 | XR_ITS ---
FINAL REPORT CLINICAL HISTORY: Left Foot Pain FINDINGS: Left foot Three views were obtained. There is no acute fracture or dislocation. There are mild degenerative changes of the midfoot. There is a plantar calcaneal spur. No soft tissue abnormality is identified. IMPRESSION: No acute process. Reviewed, Interpreted and Dictated by Sathish Subramanian III, MD Transcribed by Nhi Atkins Authenticated and [facility]
--- NOTE | 2022-10-20 11:59 | XR_ITS ---
FINAL REPORT CLINICAL HISTORY: Right foot pain FINDINGS: Right foot Three views were obtained. There is no acute fracture or dislocation. There are mild degenerative changes of the midfoot. No soft tissue abnormality is identified. IMPRESSION: No acute process. Reviewed, Interpreted and Dictated by Sathish Subramanian III, MD Transcribed by Nhi Atkins Authenticated and [facility]
== END ==
PROVIDERS: PCP Internal Medicine Adolescent Medicine; Visit Provider Nurse Practitioner Family
DX: M79.671 Pain in right foot (principal); M79.672 Pain in left foot
CPT/HCPCS: 73630

== ENCOUNTER 2022-12-11 13:15 | Emergency (ER) | payer OTHER, SELFPAY ==
[2022-12-11 13:25] VITALS: BP 121/49; PULSE 80; RESP 21; TEMP 36.7; O2SAT 97; BMI 26.4
--- NOTE | 2022-12-11 13:50 | EXP.UTC ---
Discharge Plan Disposition Patient Disposition: Home, Self-Care Condition: Good Prescriptions Prescriptions: New ciprofloxacin HCl 0.3 % drops See Rx Instructions ophthalmic (eye) .COMPLEX Qty: 5 0RF Rx Instructions: put 1 drp in both eyes every 2hr x2days; then 4 times/day x5days No Action metformin 500 mg tablet extended release 24 hr 500 mg PO BID Label Comments: TAKE 2 TABLETS BY MOUTH TWICE DAILY escitalopram oxalate 10 mg tablet 10 mg PO DAILY Label Comments: TAKE ONE TABLET BY MOUTH EVERY DAY rosuvastatin 40 mg tablet 20 mg PO DAILY Otezla 30 mg tablet 30 mg PO BID Label Comments: TAKE ONE TABLET BY MOUTH TWICE DAILY Referrals Follow up/Referrals: Nico Noyola MD [Primary Care Provider] - See instructions Activity Restrictions/Add. Instructions Additional Instructions/Restrictions: Use the eye drops as directed. Strict hand washing in the house hold, because conjunctivitis is very contagious. Follow up with your regular doctor. GO TO THE ER FOR ANY WORSENING SYMPTOMS OR CONCERNS Clinical Impressions Clinical Impression: Bilateral conjunctivitis Stand Alone Forms Stand Alone Forms: Work/School Release Instructions Patient Instructions: How to Instill Eye Drops, Conjunctivitis, DI for Conjunctivitis Discharge ED Provider: Cleve Bellamy [facility] General Stated complaint: possible pink eye Mode of Arrival: Ambulatory Source of Information: Patient Limitations: No Limitations Time Seen by Provider: 12/11/22 13:18 Description of Symptoms (Recalled from Triage Doc. by RN): PATIENT C/O REDNESS AND DRAINAGE TO RIGHT EYE SINCE THIS MORNING HEENT Symptoms (Recalled from RN notes): Yes Resp Symptoms (Recalled from RN notes): No Skin Symptoms (Recalled from RN notes): No MS Symptoms (Recalled from RN notes): No Functional Status (Recalled from RN notes): WNL Related Data Home Medications Medication Instructions Recorded Confirmed metformin 500 mg tablet,extended 500 mg PO BID Diabetes 10/16/19 12/11/22 release 24 hr escitalopram oxalate 10 mg tablet 10 mg PO DAILY . 10/20/22 12/11/22 rosuvastatin 40 mg tablet 20 mg PO DAILY Cholesterol 10/20/22 12/11/22 apremilast 30 mg tablet (Otezla) 30 mg PO BID . 12/11/22 12/11/22 Previous Rx's Medication Instructions Recorded ciprofloxacin HCl 0.3 % eye drops See Rx Instructions ophthalmic 12/11/22 (eye) .COMPLEX #5 mL Allergies Allergy/AdvReac Type Severity Reaction Status Date / Time No Known Allergies Allergy Verified 10/20/22 11:29 Worker's Comp Is this a Worker's Comp case?: No [facility] Disclaimer: The information contained in this section may have been updated after the patient was seen, as this information can be updated by other users. Medical History History of melanoma Surgical History H/O tubal ligation Social History Smoking Status: Never smoker second hand exposure: No alcohol intake: current substance use type: denies use current occupational status: other Travel in the last 8 weeks: None household members: spouse housing: house current occupation: [employer] current occupational exposures/hazards: No caffeine: Yes ROS Obtained: Yes All systems reviewed & no additional complaints except as documented Constitutional Constitutional: Denies chills and Denies fever(s) Eyes Eyes: Reports eye discharge ENT Ears, Nose, Mouth, and Throat: Denies dizziness, Denies otalgia and Denies sore throat Cardiovascular Cardiovascular: Denies chest pain Respiratory Respiratory: Denies shortness of breath, Denies chest congestion, Denies cough, Denies stridor and Denies wheezing Gastrointestinal Gastrointestingal: Denies nausea or vomiting Musculoskeletal Musculoskeletal: Report
[2022-12-11 14:35] VITALS: BP 121/49; PULSE 80; RESP 21; TEMP 36.7; O2SAT 97
== END 2022-12-11 14:37 | disposition home or self-care (01) ==
PROVIDERS: Emergency Provider Nurse Practitioner Family; PCP Internal Medicine Adolescent Medicine
DX: H10.33 Unspecified acute conjunctivitis, bilateral (principal)
CPT/HCPCS: 99212; 99214; G0463

== ENCOUNTER → 2023-03-27 15:10 | Outpatient (CLI) | payer OTHER, SELFPAY ==
--- NOTE | 2023-03-27 15:12 | MM_ITS ---
PROCEDURE INFORMATION: Exam: MG Bilateral Screening 3D Mammography Exam date and time: 03/27/2023 3:04 PM Age: 57 years old Clinical indication: Screening examination; Family history of breast cancer in aunt TECHNIQUE: Imaging protocol: Bilateral Screening tomosynthesis and 2D mammography including computer-aided detection (CAD) when performed. COMPARISON: 1. MG MM DIG SCREENING MAMM BI W/CAD 12/22/2021 4:47 PM 2. MG MM DIG SCREENING MAMM BI W/CAD 03/10/2020 4:58 PM FINDINGS: MAMMOGRAPHY: Breast composition: There are scattered areas of fibroglandular density. Mass: None. Architectural distortion: None. Calcifications: No suspicious calcifications. Asymmetric density: None. Skin thickening: None. Axillary adenopathy: None. IMPRESSION: No mammographic evidence of malignancy. Annual screening is recommended unless otherwise clinically indicated. ASSESSMENT: BI-RADS Category 1: Negative
== END ==
PROVIDERS: PCP Internal Medicine Adolescent Medicine; Visit Provider Nurse Practitioner Obstetrics & Gynecology
DX: Z12.31 Encounter for screening mammogram for malignant neoplasm of breast (principal)
CPT/HCPCS: 77063; 77067

== ENCOUNTER → 2023-04-13 09:10 | Outpatient (CLI) | payer OTHER, SELFPAY ==
[2023-04-13 09:19] LABS: Coronavirus 19, PCR Not Detected (NotDetected); Influenza A, PCR Not Detected (NotDetected); Influenza B, PCR Not Detected (NotDetected)
== END ==
PROVIDERS: PCP Internal Medicine Adolescent Medicine; Visit Provider Nurse Practitioner Family
DX: Z20.828 Contact with and (suspected) exposure to other viral communicable diseases (principal)
CPT/HCPCS: 87636

== ENCOUNTER 2023-07-18 11:53 | Emergency (ER) | payer OTHER, SELFPAY ==
[2023-07-18 12:05] VITALS: BP 121/84; PULSE 83; RESP 19; TEMP 36.8; O2SAT 97; BMI 26.4
--- NOTE | 2023-07-18 12:13 | EXP.UTC ---
Discharge Plan Disposition Patient Disposition: Home, Self-Care Condition: Good Prescriptions Prescriptions: New benzonatate [benzonatate] 100 mg capsule 100 mg PO TIDP PRN (Reason: Cough) Qty: 30 0RF methylprednisolone 4 mg Tablets,Dose Pack 4 mg PO DIRECTED Qty: 21 0RF amoxicillin-pot clavulanate 875-125 mg Tablet 1 tab PO Q12H Qty: 20 0RF No Action metformin 500 mg tablet extended release 24 hr 500 mg PO BID Patient Comments: TAKE 2 TABLETS BY MOUTH TWICE DAILY escitalopram oxalate 10 mg tablet 10 mg PO DAILY Patient Comments: TAKE ONE TABLET BY MOUTH EVERY DAY rosuvastatin 40 mg tablet 20 mg PO DAILY Otezla 30 mg tablet 30 mg PO BID Patient Comments: TAKE ONE TABLET BY MOUTH TWICE DAILY Referrals Follow up/Referrals: Nico Noyola MD [Primary Care Provider] - See instructions Activity Restrictions/Add. Instructions Additional Instructions/Restrictions: Drink plenty of fluids. Take tylenol or ibuprofen for pain or fever. Take the medications as directed. Follow up with your regular doctor. GO TO THE ER FOR ANY WORSENING SYMPTOMS Don't start the oral steroids until tomorrow, since you had the shot here today. Clinical Impressions Clinical Impression: Acute bronchitis Instructions Patient Instructions: Acute Bronchitis, DI for Acute Bronchitis Discharge ED Provider: Cleve Bellamy [facility] General Stated complaint: chest congestion, cough Time Seen by Provider: 07/18/23 12:13 History of Present Illness Provider Complaint: She states that for the past 4 days she has had a productive cough, chest congestion, and pleuritic type back pain. Related Data Home Medications Medication Instructions Recorded Confirmed metformin 500 mg tablet,extended 500 mg PO BID Diabetes 10/16/19 03/13/23 release 24 hr escitalopram oxalate 10 mg tablet 10 mg PO DAILY . 10/20/22 03/13/23 rosuvastatin 40 mg tablet 20 mg PO DAILY Cholesterol 10/20/22 03/13/23 apremilast 30 mg tablet (Otezla) 30 mg PO BID . 12/11/22 03/13/23 Previous Rx's Medication Instructions Recorded amoxicillin 875 mg-potassium 1 tab PO Q12H #20 tabs 07/18/23 clavulanate 125 mg tablet benzonatate 100 mg capsule 100 mg PO TIDP PRN Cough #30 caps 07/18/23 methylprednisolone 4 mg tablets in 4 mg PO DIRECTED #21 tabs 07/18/23 a dose pack Allergies Allergy/AdvReac Type Severity Reaction Status Date / Time No Known Allergies Allergy Verified 03/13/23 10:01 [facility] Disclaimer: The information contained in this section may have been updated after the patient was seen, as this information can be updated by other users. Medical History History of melanoma Surgical History H/O tubal ligation Family History (Updated 03/13/23 @ 10:02 by KAREY Whitney) Other Cancer Social History Smoking Status: Never smoker second hand exposure: No alcohol intake: current substance use type: denies use current occupational status: other Travel in the last 8 weeks: None household members: spouse housing: house current occupation: [employer] current occupational exposures/hazards: No caffeine: Yes ROS Obtained: Yes All systems reviewed & no additional complaints except as documented Constitutional Constitutional: Reports chills and Reports fever(s) Eyes Eyes: Denies eye discharge ENT Ears, Nose, Mouth, and Throat: Reports as per HPI Cardiovascular Cardiovascular: Denies chest pain Respiratory Respiratory: Denies chest congestion and Reports cough Gastrointestinal Gastrointestingal: Reports nausea; Denies abdominal pain, constipation, cramping, diarrhea or vomiting Musculoskeletal Musculoskeletal: Denies arthralgias Integumentary/Breasts Skin/Breast: Denies rash Neurologic
[2023-07-18 12:29] VITALS: BP 121/84; PULSE 83; RESP 19; TEMP 36.8; O2SAT 97
== END 2023-07-18 12:50 | disposition home or self-care (01) ==
PROVIDERS: Emergency Provider Nurse Practitioner Family; PCP Internal Medicine Adolescent Medicine
DX: J20.9 Acute bronchitis, unspecified (principal)
CPT/HCPCS: 96372; 99212; 99214; G0463

== ENCOUNTER → 2023-08-29 12:14 | Outpatient (CLI) | payer OTHER, SELFPAY ==
--- NOTE | 2023-08-29 | XR_ITS ---
FINAL REPORT TECHNIQUE: Chest PA & Lateral CLINICAL HISTORY: PERSISTENT COUGH COMPARISON: None FINDINGS: 2 views of the chest were performed. The heart size is normal. The mediastinum is within normal limits. There is no acute cardiopulmonary process. There are no pleural effusions. There is no pneumothorax. The bony thorax appears intact. IMPRESSION: No acute cardiopulmonary process. Reviewed, Interpreted and Dictated by Cesar Pena MD Transcribed by Carlotta Rudolph Authenticated and [facility]
== END ==
PROVIDERS: PCP Nurse Practitioner Family; Visit Provider Nurse Practitioner Family
DX: R05.3 Chronic cough (principal)
CPT/HCPCS: 71046

== ENCOUNTER 2023-10-16 12:03 | Outpatient (CLI) | payer OTHER, SELFPAY ==
[2023-10-16 12:55] LABS: Basophils # 0.1 K/mm3 (0-0.2); Basophils % 0.8 % (0.1-2.0); Eosinophils # 0.3 K/mm3 (0.0-0.4); Eosinophils % 4.9 % (0.1-12.0); Hematocrit 41.2 % (37.0-47.0); Hemoglobin 14.2 g/dL (12.2-16.2); Mean Corpuscular HGB Conc 34.3 g/dL (31.8-35.4); Mean Corpuscular Hemoglobin 33.1 pg (27.0-31.2); Mean Corpuscular Volume 96.2 fl (81-99); Mean Platelet Volume 8.2 fl (7.4-10.4); Monocytes # 0.4 K/mm3 (0.1-1.0); Neutrophils # 3.9 K/mm3 (1.8-7.8); Neutrophils % 58.3 % (37.0-80.0); Platelet Count 226 K/mm3 (142-424); Red Blood Count 4.28 M/mm3 (4.20-5.40); Red Cell Distribution Width 13.5 % (11.5-17.5); White Blood Count 6.6 K/mm3 (4.8-10.8)
[2023-10-16 13:12] LABS: Alanine Aminotransferase 65 U/L (12-78); Albumin Level 4.4 g/dl (3.5-5.0); Albumin/Globulin Ratio 1.9 (1.1-1.8); Alkaline Phosphatase 97 U/L (38-126); Anion Gap 11.6 mEq/L (5-15); Aspartate Amino Transferase 67 U/L (14-36); Bilirubin,Total 0.6 mg/dl (0.2-1.3); Blood Urea Nitrogen 15 mg/dl (7-17); Carbon Dioxide 27 mmol/L (22.0-30.0); Chloride 103 mmol/L (98-107); Chol/HDL Ratio 2.3 (1-3.5); Cholesterol 147 mg/dl (140-200); Estimated Glomerular Filt Rate 52 ml/min (>60); GFR (African American) 62 ML/MIN (>60); Globulin 2.3 g/dL (1.3-3.2); Glucose 114 mg/dl (74-100); HDL Cholesterol 65 mg/dl (40-60); Potassium 4.6 mmoL/L (3.5-5.1); Sodium 137 mmol/L (136-145); Total Protein,Serum 6.7 g/dl (6.3-8.2); Triglycerides 69 mg/dl (30-150); VLDL Cholesterol 14 mg/dL (0-40)
[2023-10-16 13:23] LABS: Direct LDL Cholesterol 69.62 mg/dL (100-129)
[2023-10-16 13:28] LABS: Hemoglobin A1C 6.7 % (4.0-6.0)
[2023-10-16 13:43] LABS: Thyroid Stimulating Hormone 1.15 uIU/mL (0.465-4.68)
== END 2023-10-16 23:59 ==
PROVIDERS: PCP Nurse Practitioner Family; Visit Provider Nurse Practitioner Family
DX: E11.9 Type 2 diabetes mellitus without complications (principal); R53.83 Other fatigue; Z79.84 Long term (current) use of oral hypoglycemic drugs; Z79.899 Other long term (current) drug therapy
CPT/HCPCS: 36415; 80053; 80061; 83036; 84443; 85025

== ENCOUNTER 2023-11-10 13:38 | Outpatient (CLI) | payer OTHER, SELFPAY ==
--- NOTE | 2023-11-10 13:43 | MR_ITS ---
FINAL REPORT CLINICAL HISTORY: CERVICAL PAIN. RIGHT HAND NUMBNESS. UNABLE TO USE INDEX FINGER. NECK PAIN. NUMBNESS AND TINGLING IN RIGHT ARM COMPARISON: None FINDINGS: Multi planar MR imaging was obtained of the cervical spine. There is abnormal decreased signal throughout the cervical discs. There is moderate disc space narrowing present at the C5-6 and C6-7 levels. There is loss of the normal cervical lordosis. There is no malalignment. The cervical cord demonstrates normal signal and configuration. C2-C3: There is no evidence of significant disc bulge or protrusion. There is no significant facet hypertrophy. C3-C4: There is no evidence of significant disc bulge or protrusion. There is no significant facet hypertrophy. C4-C5: There is a right posterolateral disc protrusion with endplate hypertrophy and moderate to severe right neural foraminal narrowing. C5-C6: There is a moderate annular bulge present with endplate hypertrophy, and left posterolateral disc protrusion with osteophytes, and severe bilateral left greater than right neural foraminal narrowing. C6-C7: 8 moderate annular bulge is present, with endplate hypertrophy, and moderate to severe bilateral neural foraminal narrowing. C7-T1: There is no evidence of significant disc bulge or protrusion. There is no significant facet hypertrophy. IMPRESSION: Cervical degenerative change present at the C4-5, C5-6, and C6-7 levels, most severe at the C5-6 level. Reviewed, Interpreted and Dictated by Cesar Pena MD Transcribed by Carlotta Rudolph Authenticated and [facility]
== END 2023-11-10 23:59 ==
LOC: RAD 13:39
PROVIDERS: PCP Nurse Practitioner Family; Visit Provider Nurse Practitioner Family
DX: M54.2 Cervicalgia (principal)
CPT/HCPCS: 72141; 76376

== ENCOUNTER 2023-12-13 10:47 | Outpatient (CLI) | payer OTHER, SELFPAY ==
--- NOTE | 2023-12-13 12:51 | XR_ITS ---
FINAL REPORT CLINICAL HISTORY: STENOSIS COMPARISON: None FINDINGS: 6 images of the cervical spine were obtained including flexion and extension views. There is no acute fracture. There is no malalignment. There is moderate disc space narrowing at C5-6 and C6-7. There is moderate anterior osteophyte formation. There is no evidence of instability with flexion or extension. IMPRESSION: Moderate degenerative change without acute bony abnormality. No evidence of instability with flexion or extension. Reviewed, Interpreted and Dictated by Cesar Pena MD Transcribed by Nancy Powers Authenticated and [facility]
== END 2023-12-13 23:59 ==
PROVIDERS: PCP Internal Medicine Adolescent Medicine; Visit Provider Neurological Surgery
DX: M48.02 Spinal stenosis, cervical region (principal)
CPT/HCPCS: 72052

== ENCOUNTER 2023-12-26 09:13 | Outpatient (POV) | payer OTHER, SELFPAY | END 2023-12-26 23:59 | disposition home or self-care (01) | LOC: SC 09:14 | PROVIDERS: PCP Internal Medicine Adolescent Medicine; Visit Provider Dermatology | DX: Z00.00 Encounter for general adult medical examination without abnormal findings (principal) ==

== ENCOUNTER 2024-01-02 15:59 | Outpatient (RCR) | payer OTHER, SELFPAY | END 2024-01-02 17:00 | disposition home or self-care (01) | LOC: OT 15:59 | PROVIDERS: Visit Provider Nurse Practitioner Family | DX: G56.01 Carpal tunnel syndrome, right upper limb (principal) | CPT/HCPCS: 97763 ==

== ENCOUNTER 2024-01-03 11:11 | Outpatient (POV) | payer OTHER, SELFPAY ==
--- NOTE | 2024-01-03 11:41 | EXP.PAIN.OV ---
HPI Data of Consult Patient: new to practice Consult date: 01/03/24 Requesting Physician: Nimco Calderon APRN Primary Care Provider: Nico Noyola MD Consult Narrative Reason for consult: Neck pain, right arm pain, right hand numbness History of present illness: Ms. Bain is a 58 year old female who presents today as a self-referral. Patient does state that she had previously saw Dr. Gil in the past and did get injections. Patient does rate her pain today is 7 out of 10 and states her pain is all in her neck with radiating symptoms down her right arm. Patient does state in the past that when she came to see him it was more symptoms into the left side. Patient states that the current symptoms have been going on the last 3 to 4 months. Patient does describe it as an aching, throbbing sensation with numbness and tingling into her extremity and index finger. Patient does state the pain interferes with her ability perform activities of daily living such as cooking and cleaning. Patient does state that she has had a recent EMG test and that it did show mild carpal tunnel. Patient does states she has also in the past went to see a neurosurgeon back in 2019 who did mention about doing surgery however she was trying to do well with conservative treatment. Patient states that she has had physical therapy and did doing traction and ultrasound which significantly relieved her symptoms. Patient does take [id number] Tylenol and ibuprofen along with heat and ice and topicals with minimal relief. 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 Her [place] has been reviewed and is appropriate. CC: Nimco Calderon APRN [facility] Disclaimer: The information contained in this section may have been updated after the patient was seen, as this information can be updated by other users. Medical History History of melanoma Surgical History H/O tubal ligation Family History (Updated 03/13/23 @ 10:02 by KAREY Whitney) Other Cancer Social History Smoking Status: Never smoker second hand exposure: No alcohol intake: current substance use type: denies use current occupational status: other Travel in the last 8 weeks: None household members: spouse housing: house current occupation: [employer] current occupational exposures/hazards: No caffeine: Yes Review of Systems Review of Systems Review of systems:: pertinent systems reviewed and negative unless documented below Review of systems (narrative): Review of Systems: General: No recent weight changes, no fever, no sleep disturbances Respiratory: No cough, no shortness of air, no recurring pulmonary infections Cardiovascular/peripheral vascular: No chest pain, no palpitations, no edema, no shortness of breath Gastrointestinal: No new onset incontinence, normal bowel movements reported Genitourinary: No new onset incontinence Musculoskeletal: Neck pain, right arm pain, right hand numbness tingling Psychiatric: [Normal mood/affect] Neurological: [Denies weakness in extremities], [denies balance issues] Meds Home Medications and Allergies Home Medications Medication Instructions Recorded Confirmed Type metformin 500 mg tablet,extended 500 mg PO BID Diabetes 10/16/19 03/13/23 History release 24 hr escitalopram oxalate 10 mg tablet 10 mg PO DAILY . 10/20/22 03/13/23 History rosuvastatin 40 mg tablet 20 mg PO DAILY Cholesterol 10/20/22 03/13/23 History apremilast 30 mg tablet (Otezla) 30 mg PO BID . 12/11/22 03/13/23 History amoxicillin 875 mg-potassium 1 tab PO Q12H #20 tabs 07/18/23 Rx clavulanate 125 mg tablet benzonatate 100 mg capsule 100 mg PO TIDP PRN Cough #30 caps 07/18/23 Rx methylprednisolone 4 mg tablets in 4 mg PO DIRECTED #21 tabs 07/18/23 Rx a dose pack New Prescriptions to Start Prescriptions: Allergies Allergy/AdvReac Type Severity Reaction Status Date / Time No Known Allergies Allergy Verified 03/13/23 10:01 Objective Narrative: Physical Exam: General: Alert and oriented x3, no acute distress, pleasant and cooperative Lungs: Respirations even and unlabored, symmetrical chest expansion Eyes: PERRL Musculoskeletal: Flexion and extension of cervical [spine] somewhat guarded secondary to pain, [antalgic gait noted] positive Spurling's test Neurological: Speech clear, no gross sensory deficit Additional findings Additional findings: FINAL REPORT CLINICAL HISTORY: CERVICAL PAIN. RIGHT HAND NUMBNESS. UNABLE TO USE INDEX FINGER. NECK PAIN. NUMBNESS AND TINGLING IN RIGHT ARM COMPARISON: None FINDINGS: Multi planar MR imaging was obtained of the cervical spine. There is abnormal decreased signal throughout the cervical discs. There is moderate disc space narrowing present at the C5-6 and C6-7 levels. There is loss of the normal cervical lordosis. There is no malalignment. The cervical cord demonstrates normal signal and configuration. C2-C3: There is no evidence of significant disc bulge or protrusion. There is no significant facet hypertrophy. C3-C4: There is no evidence of significant disc bulge or protrusion. There is no significant facet hypertrophy. C4-C5: There is a right posterolateral disc protrusion with endplate hypertrophy and moderate to severe right neural foraminal narrowing. C5-C6: There is a moderate annular bulge present with endplate hypertrophy, and left posterolateral disc protrusion with osteophytes, and severe bilateral left greater than right neural foraminal narrowing. C6-C7: 8 moderate annular bulge is present, with endplate hypertrophy, and moderate to severe bilateral neural foraminal narrowing. C7-T1: There is no evidence of significant disc bulge or protrusion. There is no significant facet hypertrophy. IMPRESSION: Cervical degenerative change present at the C4-5, C5-6, and C6-7 levels, most severe at the C5-6 level. Reviewed, Interpreted and Dictated by Cesar Pena MD Transcribed by Carlotta Rudolph Authenticated and [facility] Assessment and Plan *Assessment and plan (1) Degenerative disc disease, cervical: Status: Acute Category: Medical Code(s): M50.30 - Other cervical disc degeneration, unspecified cervical region (2) Cervical radiculopathy: Status: Acute Category: Medical Code(s): M54.12 - Radiculopathy, cervical region Plan Patient is experiencing significant pain in her neck with radiating symptoms down her entire right arm. Patient did have limited range of motion of her cervical spine and a positive Spurling's test. Patient does also have consistent findings in her MRI that did show multilevel degenerative disc disease with neuroforaminal narrowing. I have discussed with the patient that she may benefit from a cervical epidural steroid injection. Risk and benefits were discussed with the patient and she would like to proceed forward with this plan of care. Patient is not on any blood thinners. I will also order the patient a compounded cream. Patient will be scheduled for a ADEEL C6-C7 under fluoroscopy. Patient has tried and failed conservative therapies. Patient has been instructed to contact the clinic with any concerns before the next appointment. Dr. Gil has reviewed this note and agrees with this plan of care. This note was dictated using voice recognition software and make contain errors or omissions.
[2024-01-03 13:31] VITALS: BP 133/84; PULSE 80; RESP 18; O2SAT 95; BMI 25.0
== END 2024-01-03 23:59 ==
LOC: SC.PAIN 11:11
PROVIDERS: PCP Internal Medicine Adolescent Medicine; Visit Provider Nurse Practitioner Family
DX: M50.123 Cervical disc disorder at C6-C7 level with radiculopathy (principal)
CPT/HCPCS: 99202; G0463

== ENCOUNTER 2024-01-09 08:55 | Day surgery (SDC) | payer OTHER, SELFPAY ==
[2024-01-09 09:07] VITALS: BP 135/78; PULSE 82; RESP 18; TEMP 36.2; O2SAT 98; BMI 25.0
[2024-01-09 09:12] VITALS: BP 122/76; PULSE 90; RESP 18; O2SAT 95
[2024-01-09] MEDS: methylPREDNISolone ACETATE 80MG/ML VIAL 80 MG (09:12)
[2024-01-09 09:14] VITALS: BP 122/76; PULSE 88; RESP 18; O2SAT 95
--- NOTE | 2024-01-09 09:17 | P.PCN_ITS ---
Procedure Date: 01/09/24 Time: 09:10 Anesthesiologist:: Hunter Grimes CRNA Complications:: None Pre-procedure Diagnosis:: Degenerative disc cervical spine multilevels. Cervical radiculopathy. Post-procedure Diagnosis:: Same. Indications for Procedure:: Patient is a very pleasant 58-year-old female who comes our clinic today for cervical epidural steroid injection. Patient has had this injection in the past with significant improvement terms of her overall cervical neck pain as well as bilateral arm radicular symptoms. She rates her pain today /10. Procedure Details:: Procedure:Cervical epidural steroid injection Informed consent was obtained and the risks and benefits of the procedure were explained to the patient. The patient was taken to the procedure room and noninvasive monitors placed, including noninvasive blood pressure cuff and pulse oximeter. The neck was prepped using Chloraprep as a cleansing solution. The C6- C7 interspace was viewed using fluroscopy. The skin and subcutaneous tissues were anesthetized using lidocaine 1.5% and a 25-gauge needle. After this an 18- gauge Touhy epidural needle was placed into the C6-C7 interspace under fluroscopy guidance and advanced using loss of resistance to air until the e pidural space was encountered. After confirmation of needle placement in the epidural space using contrast dye, a solution containing normal saline, 2 mL and Depo-Medrol 80 mg was incrementally injected into the cervical epidural space.~ The patient tolerated the procedure well with no complications. The patient was observed in the Pain Clinic and then discharged home neurologically intact. Plan and Disposition:: Patient was discharged without incident.
[2024-01-09 09:18] VITALS: BP 137/82; PULSE 81; RESP 18; O2SAT 98
[2024-01-09] MEDS: IOPAMIDOL-200 (41%);10ML VIAL 10 ML IV (09:21)
== END 2024-01-09 09:18 | disposition home or self-care (01) ==
PROVIDERS: PCP Internal Medicine Adolescent Medicine; Visit Provider Nurse Anesthetist, Certified Registered
DX: M50.123 Cervical disc disorder at C6-C7 level with radiculopathy (principal)
CPT/HCPCS: 62321; 62323; J1010; Q9966

== ENCOUNTER 2024-01-22 09:43 | Outpatient (POV) | payer OTHER, SELFPAY ==
[2024-01-22 09:55] VITALS: BP 142/73; PULSE 88; RESP 18; TEMP 36.6; O2SAT 98; BMI 25.0
--- NOTE | 2024-01-22 09:59 | A.OFFVIS_ITS ---
[facility] Pain Management SOAP Note Subjective:: Patient is a pleasant 58-year-old female who presents today for follow-up of cervical epidural steroid injection C6-C7 on 01/09/2024. Today she rates her pain a 2 out of 10. Patient denies any new trauma or injury. She states that she has had at least 90% improvement and feels like it is still helping. Patient does state that she is able to do more with decreased pain symptoms and feels overall more functional. Her [place] has been reviewed and is appropriate. Review of Systems: General: No recent weight changes, no fever, no sleep disturbances Respiratory: No cough, no shortness of air, no recurring pulmonary infections Cardiovascular/peripheral vascular: No chest pain, no palpitations, no edema, no shortness of breath Gastrointestinal: No new onset incontinence, normal bowel movements reported Genitourinary: No new onset incontinence Musculoskeletal: Neck pain Psychiatric: [Normal mood/affect] Neurological: [Denies weakness in extremities], [denies balance issues] Objective:: Physical Exam: General: Alert and oriented x3, no acute distress, pleasant and cooperative Lungs: Respirations even and unlabored, symmetrical chest expansion Eyes: PERRL Musculoskeletal: Flexion and extension of cervical [spine] somewhat guarded s econdary to pain, [antalgic gait noted] Neurological: Speech clear, no gross sensory deficit Assessment:: Degenerative disc disease of cervical spine with cervical radiculopathy symptoms Plan:: Patient has had significant improvement following her cervical epidural and does not require any additional injection therapy at this time. Patient will return to clinic in 1 month for reevaluation of symptoms and plan of care. Patient has been instructed to contact the clinic with any concerns before the next appointment. Dr. Gil has reviewed this note and agrees with this plan of care. This note was dictated using voice recognition software and make contain errors or omissions. [facility] Disclaimer: The information contained in this section may have been updated after the patient was seen, as this information can be updated by other users. Medical History Diabetes HLD (hyperlipidemia) History of melanoma Surgical History H/O tubal ligation Family History Other Cancer Social History Smoking Status: Never smoker second hand exposure: No alcohol intake: current alcohol intake frequency: holidays/special occasions only substance use type: denies use current occupational status: employed Travel in the last 8 weeks: None household members: spouse housing: house current occupation: [employer] current occupational exposures/hazards: No caffeine: Yes
== END 2024-01-22 23:59 | disposition home or self-care (01) ==
LOC: SC.PAIN 09:43
PROVIDERS: PCP Internal Medicine Adolescent Medicine; Visit Provider Nurse Practitioner Family
DX: M50.123 Cervical disc disorder at C6-C7 level with radiculopathy (principal)
CPT/HCPCS: 99212; G0463

== ENCOUNTER 2024-02-19 09:43 | Outpatient (POV) | payer OTHER, SELFPAY ==
[2024-02-19 09:52] VITALS: BP 105/74; PULSE 82; RESP 18; O2SAT 96; BMI 25.4
--- NOTE | 2024-02-19 10:07 | EXP.PAIN.SOA ---
[facility] Pain Management SOAP Note Subjective:: Patient is a pleasant 58-year-old female who presents today for 1 month follow-up. Today she rates her pain a 2 out of 10. Patient denies any new trauma or injury. Patient did previously have a cervical epidural of C6-C7 on 01/09/2024. Patient states that she does feel like it is still working well. She states she does have improved function overall with the injection. Patient does state that she does frequently still have muscle tension and headaches however it is still very manageable. She is also managed with compounded cream and states this does help additionally. Her [place] has been reviewed and is appropriate. Review of Systems: General: No recent weight changes, no fever, no sleep disturbances Respiratory: No cough, no shortness of air, no recurring pulmonary infections Cardiovascular/peripheral vascular: No chest pain, no palpitations, no edema, no shortness of breath Gastrointestinal: No new onset incontinence, normal bowel movements reported Genitourinary: No new onset incontinence Musculoskeletal: Neck pain Psychiatric: [Normal mood/affect] Neurological: [Denies weakness in extremities], [denies balance issues] Objective:: Physical Exam: General: Alert and oriented x3, no acute distress, pleasant and cooperative Lungs: Respirations even and unlabored, symmetrical chest expansion Eyes: PERRL Musculoskeletal: Flexion and extension of cervical [spine] somewhat guarded secondary to pain, [antalgic gait noted] Neurological: Speech clear, no gross sensory deficit Assessment:: Degenerative disc disease of cervical spine with cervical radiculopathy symptoms Plan:: Patient is continuing to get significant relief following her cervical epidural and does not require any additional injection therapy at this time. Patient will return to clinic in 3 months for reevaluation of symptoms and plan of care. Patient has been instructed to contact the clinic with any concerns before the next appointment. Dr. Gil has reviewed this note and agrees with this plan of care. This note was dictated using voice recognition software and make contain errors or omissions. [facility] Disclaimer: The information contained in this section may have been updated after the patient was seen, as this information can be updated by other users. Medical History Diabetes HLD (hyperlipidemia) History of melanoma Surgical History H/O tubal ligation Family History Other Cancer Social History Smoking Status: Never smoker second hand exposure: No alcohol intake: current alcohol intake frequency: holidays/special occasions only substance use type: denies use current occupational status: other Travel in the last 8 weeks: None household members: spouse housing: house current occupation: [employer] current occupational exposures/hazards: No caffeine: Yes
== END 2024-02-19 23:59 | disposition home or self-care (01) ==
LOC: SC.PAIN 09:43
PROVIDERS: PCP Internal Medicine Adolescent Medicine; Visit Provider Nurse Practitioner Family
DX: M50.123 Cervical disc disorder at C6-C7 level with radiculopathy (principal)
CPT/HCPCS: 99212; G0463

== ENCOUNTER 2024-08-07 16:28 | Outpatient (CLI) | payer OTHER, SELFPAY ==
--- NOTE | 2024-08-07 16:29 | MM_ITS ---
PROCEDURE INFORMATION: Exam: MG Bilateral Screening 3D Mammography Exam date and time: 08/07/2024 4:19 PM Age: 58 years old Clinical indication: Screening examination. TECHNIQUE: Imaging protocol: Bilateral Screening tomosynthesis and 2D mammography including computer-aided detection (CAD) when performed. COMPARISON: 1. MG MM DIG SCREENING MAMM BI W/CAD 03/27/2023 3:04 PM 2. MG MM DIG SCREENING MAMM BI W/CAD 12/22/2021 4:47 PM FINDINGS: MAMMOGRAPHY: Breast composition: The breasts are almost entirely fatty. Mass: None. Architectural distortion: None. Calcifications: No suspicious calcifications. Asymmetric density: None. Skin thickening: None. Axillary adenopathy: None. IMPRESSION: No mammographic evidence of malignancy. Annual screening is recommended unless otherwise clinically indicated. ASSESSMENT: BI-RADS Category 1: Negative.
== END 2024-08-07 23:59 | disposition home or self-care (01) ==
LOC: RAD 16:29
PROVIDERS: PCP Nurse Practitioner Family; Visit Provider Nurse Practitioner Obstetrics & Gynecology
DX: Z12.31 Encounter for screening mammogram for malignant neoplasm of breast (principal)
CPT/HCPCS: 77063; 77067

== ENCOUNTER 2024-09-19 12:45 | Outpatient (CLI) | payer OTHER, SELFPAY ==
--- NOTE | 2024-09-19 12:49 | XR_ITS ---
FINAL REPORT CLINICAL HISTORY: LEFT SIDE RIB PAIN FINDINGS: PA and lateral views of the chest are obtained. There is no prior exam for comparison. The cardiac and mediastinal silhouettes are within normal limits. The lungs are clear. There is no pleural effusion, pneumothorax, or acute osseous abnormality. IMPRESSION: No radiographic evidence of acute cardiac or pulmonary disease. Reviewed, Interpreted and Dictated by Minna Rivera MD Transcribed by Michelle Love Authenticated and [facility]
== END 2024-09-19 23:59 | disposition home or self-care (01) ==
LOC: RAD 12:46
PROVIDERS: PCP Internal Medicine Adolescent Medicine; Visit Provider Physician Assistant
DX: R07.81 Pleurodynia (principal)
CPT/HCPCS: 71046

== ENCOUNTER 2025-01-23 08:38 | Outpatient (CLI) | payer OTHER, SELFPAY ==
[2025-01-23 09:58] LABS: Basophils % 0.5 % (0.1-2.0); Eosinophils # 0.5 Kmm3 (0.0-0.4); Eosinophils % 7.9 % (0.1-12.0); Hematocrit 39.8 % (37.0-47.0); Hemoglobin 12.7 g/dL (12.2-16.2); Immature Granulocytes # 0.01 10^3uL; Immature Granulocytes % 0.2 %; Lymphocytes % 34.5 % (10-50); Mean Corpuscular HGB Conc 31.9 g/dL (31.8-35.4); Mean Corpuscular Hemoglobin 29.1 pg (27.0-31.2); Mean Corpuscular Volume 91.3 fl (81-99); Mean Platelet Volume 10.3 fl (7.4-10.4); Monocytes # 0.4 K/mm3 (0.1-1.0); Monocytes % 7.6 % (1.7-9.3); Neutrophils # 2.9 K/mm3 (1.8-7.8); Neutrophils % 49.3 % (37.0-80.0); Nucleated Red Blood Cells # 0 10^3/uL; Nucleated Red Blood Cells % 0 %; Platelet Count 213 K/mm3 (142-424); Red Blood Count 4.36 M/mm3 (4.20-5.40); Red Cell Distribution Width 14.5 % (11.5-17.5); Red Cell Distribution Width-SD 48.2 fL; White Blood Count 5.8 K/mm3 (4.8-10.8)
[2025-01-23 10:19] LABS: Alanine Aminotransferase 22 U/L (12-78); Albumin Level 4.6 g/dl (3.5-5.0); Alkaline Phosphatase 85 U/L (38-126); Anion Gap 8.4 mEq/L (5-15); Aspartate Amino Transferase 31 U/L (14-36); Bilirubin,Total 0.5 mg/dl (0.2-1.3); Blood Urea Nitrogen 14 mg/dl (7-17); Calcium 9.8 mg/dl (8.4-10.2); Carbon Dioxide 28 mmol/L (22.0-30.0); Chloride 106 mmol/L (98-107); Cholesterol 163 mg/dl (140-200); Estimated Glomerular Filt Rate 65 ml/min (>60); GFR (African American) 78 ML/MIN (>60); Globulin 2.3 g/dL (1.3-3.2); Glucose 107 mg/dl (74-100); HDL Cholesterol 80 mg/dl (40-60); Potassium 4.4 mmoL/L (3.5-5.1); Sodium 138 mmol/L (136-145); Total Protein,Serum 6.9 g/dl (6.3-8.2); Triglycerides 120 mg/dl (30-150); VLDL Cholesterol 24 mg/dL (0-40)
[2025-01-23 10:30] LABS: Direct LDL Cholesterol 56.42 mg/dL (100-129)
[2025-01-23 10:49] LABS: Thyroid Stimulating Hormone 1.49 uIU/mL (0.465-4.68)
[2025-01-23 11:03] LABS: Hemoglobin A1C 6.7 % (4.0-6.0)
== END 2025-01-23 23:59 | disposition home or self-care (01) ==
LOC: LAB 08:39
PROVIDERS: PCP Nurse Practitioner Family; Visit Provider Nurse Practitioner Family
DX: E11.9 Type 2 diabetes mellitus without complications (principal)
CPT/HCPCS: 36415; 80053; 80061; 83036; 84443; 85025

== ENCOUNTER 2025-08-11 14:45 | Outpatient (CLI) | payer OTHER, SELFPAY ==
--- NOTE | 2025-08-11 14:50 | MM_ITS ---
PROCEDURE INFORMATION: Exam: MG Bilateral Screening 3D Mammography Exam date and time: 08/11/2025 2:40 PM Age: 59 years old Clinical indication: Screening exam TECHNIQUE: Imaging protocol: Bilateral Screening tomosynthesis and 2D mammography including computer-aided detection (CAD) when performed. COMPARISON: 1. MG MM DIG SCREENING MAMM BI W/CAD 08/07/2024 4:19 PM 2. MG MM DIG SCREENING MAMM BI W/CAD 03/27/2023 3:04 PM FINDINGS: MAMMOGRAPHY: Breast composition: The breasts are almost entirely fatty. Mass: No suspicious masses. Architectural distortion: None. Calcifications: No suspicious calcifications. Asymmetric density: None. Skin thickening: None. Axillary adenopathy: None. IMPRESSION: No mammographic evidence of malignancy. Annual screening is recommended unless otherwise clinically indicated. ASSESSMENT: BI-RADS Category 1: Negative.
== END 2025-08-11 23:59 | disposition home or self-care (01) ==
LOC: RAD 14:46
PROVIDERS: PCP Nurse Practitioner Family; Visit Provider Nurse Practitioner Obstetrics & Gynecology
DX: Z12.31 Encounter for screening mammogram for malignant neoplasm of breast (principal)
CPT/HCPCS: 77063; 77067